=== PATIENT | male | born 1975 | race Caucasian/White ===

== ENCOUNTER → 2021-07-18 15:47 | Outpatient (CLI) | payer BC, SELFPAY ==
--- NOTE | ~2021-07-18 | CT_ITS ---
EXAMINATION: CT diagnostic chest wo con DATE: 07/18/2021 16:07 INDICATION: Solitary pulmonary nodule TECHNIQUE: Computed tomography (CT) of the chest was performed without intravenous contrast. Addition al 3D reconstructions utilizing coronal maximum intensity projection (MIP) were performed. Automated exposure control and iterative reconstruction technique were employed. The dose-length product was 22 0.29 mGy-cm. COMPARISON: None FINDINGS: There are multiple pulmonary nodules scattered throughout both lungs. Several of these represent subc entimeter intrafissural lymph nodes with typical triangular or lenticular configuration. Many additio nal nodules are seen abutting and difficult to distinguish from the pulmonary vasculature limiting as sessment for size of the nodules. The largest measuring up to 2 cm seen in the bilateral infrahilar r egions. There are also several pleural-based nodules the largest measuring 13 x 7 mm in the superior segment of the left lower lobe abutting the descending thoracic aorta. There is mediastinal and more prominent bilateral hilar lymphadenopathy come the margins of which are similarly unable to be clearl y distinguished from the adjacent vasculature. No pulmonary edema or pleural effusion. Heart size is normal. No pericardial effusion. Thoracic aorta is normal in caliber. Diffuse hepatic steatosis. The bones and visualized upper abdomen are otherwise unremarkable. IMPRESSION: 1. Mediastinal and more bulky bilateral hilar lymphadenopathy along with multiple pulmonary nodules a long the fissures, pleural and pulmonary vasculature suggesting additional enlarged lymph nodes and s uspicion for lymphoma, sarcoidosis or other metastatic disease. The nodules which are of sufficient s ize for biopsy are all positioned centrally amongst the central bronchi and pulmonary vasculature and would not be readily amenable to CT-guided percutaneous biopsy. Reviewed, dictated and finalized at location A. [facility] [employer] IMPRESSION: 1. Mediastinal and more bulky bilateral hilar lymphadenopathy along with multip le pulmonary nodules along the fissures, pleural and pulmonary vasculature sugg esting additional enlarged lymph nodes and suspicion for lymphoma, sarcoidosis or other metastatic disease. The nodules which are of sufficient size for biops y are all positioned centrally amongst the central bronchi and pulmonary vascul ature and would not be readily amenable to CT-guided percutaneous biopsy.
== END ==
PROVIDERS: Visit Provider Internal Medicine
DX: R59.0 Localized enlarged lymph nodes (principal); R92.8 Other abnormal and inconclusive findings on diagnostic imaging of breast
CPT/HCPCS: 71250